=== PATIENT | male | born 1985 | race American Indian/Alaskan Native ===

== ENCOUNTER 2018-01-31 12:50 | Emergency (ER) | payer BC, OTHER ==
[2018-01-31 12:56] VITALS: BP 134/67
--- NOTE | 2018-01-31 14:03 | Emergency Department Report ---
ED Lower Extremity HPI - General Chief Complaint: Extremity Injury, Lower Stated Complaint: LEFT ANKLE PAIN Time Seen by Provider: 01/31/18 14:02 Source: patient Mode of arrival: Ambulatory Limitations: No Limitations - History of Present Illness Initial Comments: This is a 32-year-old male nontoxic, well nourished in appearance, no acute signs of distress presents to the ED with c/o of left ankle pain with slight swelling x1 day. Patient stated that he has been walking a lot at work and swelling increases and worsens at night time after work. Patient denies any trauma. Patient denies any numbness, tingling, chest pain, shortness of breath, ankle redness, back pain, nausea or vomiting. Patient denies any drug allergies. Patient denies PMH. MD Complaint: ankle injury -: days(s) (2) Injury: Knee: Left Place: work Severity: mild Severity scale (0 -10): 8 Improves With: immobilization Worsens With: movement, palpation Context: walking Associated Symptoms: ambulatory. denies: snap/pop sensation, swelling, numbness , tingling, unable to bear weight, able to partially bear weight - Related Data Previous Rx's Medication Instructions Recorded Last Taken Type Cyclobenzaprine HCl [Flexeril 5 MG 5 mg PO TID #20 tab 06/25/16 Unknown Rx TAB] Ibuprofen [Motrin 600 MG tab] 600 mg PO Q8H PRN #30 tablet 06/25/16 Unknown Rx Ondansetron [Zofran Odt] 4 mg PO Q6H #10 tab.rapdis 06/25/16 Unknown Rx Ibuprofen [Motrin] 600 mg PO Q8H PRN #30 tablet 01/31/18 Unknown Rx Allergies Allergy/AdvReac Type Severity Reaction Status Date / Time iodine Allergy Swelling Verified 06/25/16 12:00 shellfish derived Allergy Swelling Verified 06/25/16 12:00 ED Review of Systems ROS: Stated complaint: LEFT ANKLE PAIN Other details as noted in HPI Constitutional: denies: chills, fever Eyes: denies: eye pain, eye discharge, vision change ENT: denies: ear pain, throat pain Respiratory: denies: cough, shortness of breath, wheezing Cardiovascular: denies: chest pain, palpitations Endocrine: no symptoms reported Gastrointestinal: denies: abdominal pain, nausea, diarrhea Genitourinary: denies: urgency, dysuria Musculoskeletal: arthralgia. denies: back pain, joint swelling Skin: denies: rash, lesions Neurological: denies: headache, weakness, paresthesias Psychiatric: denies: anxiety, depression Hematological/Lymphatic: denies: easy bleeding, easy bruising ED Past Medical Hx - Past Medical History Previous Medical History?: No - Surgical History Past Surgical History?: No - Social History Smoking Status: Current Every Day Smoker Substance Use Type: None - Medications Home Medications: Home Medications Medication Instructions Recorded Confirmed Last Taken Type Cyclobenzaprine HCl [Flexeril 5 MG 5 mg PO TID #20 tab 06/25/16 Unknown Rx TAB] Ibuprofen [Motrin 600 MG tab] 600 mg PO Q8H PRN #30 tablet 06/25/16 Unknown Rx Ondansetron [Zofran Odt] 4 mg PO Q6H #10 tab.rapdis 06/25/16 Unknown Rx Ibuprofen [Motrin] 600 mg PO Q8H PRN #30 tablet 01/31/18 Unknown Rx ED Physical Exam - General Limitations: No Limitations General appearance: alert, in no apparent distress - Head Head exam: Present: atraumatic, normocephalic - Eye Eye exam: Present: normal appearance Pupils: Present: normal accommodation - ENT ENT exam: Present: normal exam, mucous membranes moist - Neck Neck exam: Present: normal inspection, full ROM - Respiratory Respiratory exam: Present: normal lung sounds bilaterally. Absent: respiratory distress, wheezes, rales, rhonchi, stridor, chest wall tenderness, accessory muscle use, decreased breath sounds, prolonged expiratory - Cardiovascular Cardiovascular Exam: Present: regular rate, normal rhythm, normal heart sounds. Absent: bradycardia, tachycardia, irregular rhythm, systolic murmur, diastolic murmur, rubs, gallop - GI/Abdominal GI/Abdominal exam: Present: soft, normal bowel sounds - Rectal Rectal exam: Present: deferred - Extremities Exam Extremities exam: Present: normal inspection, full ROM, tenderness, normal capillary refill. Absent: pedal edema, joint swelling, calf tenderness - Expanded Lower Extremity Exam Left Hip exam: Present: normal inspection, full ROM Upper Leg exam: Present: normal inspection, full ROM Knee exam: Present: normal inspection, full ROM Lower Leg exam: Present: normal inspection, full ROM. Absent: Daniel's sign Ankle exam: Present: normal inspection, full ROM, tenderness. Absent: swelling , abrasion, laceration, ecchymosis, crepidus, dislocation, erythema, anterior draw sign Foot/Toe exam: Present: normal inspection, full ROM. Absent: tenderness, swelling, abrasion, laceration, ecchymosis, deformity, crepidus, dislocation, erythema, amputation, puncture wound, foreign body, calcaneal tenderness, tenderness at base of 5th metatarsal, nail avulsion, subungual hematoma Neuro vascular tendon exam: Present: no vascular compromise. Absent: pulse deficit, abnormal cap refill, motor deficit, sensory deficit, tendon deficit, extremity cold to touch, pallor, abnormal 2-point discrimination, decreased fine /light touch, foot drop, peroneal nerve deficit, significant pain with passive ROM of distal joint Gait: Positive: observed and normal - Back Exam Back exam: Present: normal inspection, full ROM - Neurological Exam Neurological exam: Present: alert, oriented X3, normal gait - Psychiatric Psychiatric exam: Present: normal affect, normal mood - Skin Skin exam: Present: warm, dry, intact, normal color. Absent: rash ED Course Vital Signs 01/31/18 12:54 Temperature 97.9 F Pulse Rate 65 Respiratory 20 Rate Blood Pressure 134/67 O2 Sat by Pulse 100 Oximetry - Reevaluation(s) Reevaluation #1: 01/31/18 14:52 Patient is speaking in full sentences with no signs of distress noted. Reevaluation #2: Post splint assessment: neurovasular intact; normal cap refill <2 second; normal sensation; denies decreaed sensation; normal ROM of digits. ED Lower Extremity MDM - Medical Decision Making This is a 32-year-old male that presents with left ankle sprain. Patient is stable and was examined by me. Xray has been obtained by reviewed by Dr. Bustos with possible stress fracture. Patient received a posterior ankle short leg splint. Post splint assessment: neurovasular intact; normal cap refill <2 second; normal sensation; denies decreased sensation; normal ROM of digits. Patient was instructed to Rice therapy. Patient is discharged with Motrin. Patient also received crutches in the ED and was educated by RN to use crutches. Patient was referred to Follow-up with a orthopedic doctor in 3-5 days or if symptoms worsen and continue return to emergency room as soon as possible. At time of discharge, the patient does not seem toxic or ill in appearance. No acute signs of distress noted. Patient agrees to discharge treatment plan of care. No further questions noted by the patient. Critical care attestation.: If time is entered above; I have spent that time in minutes in the direct care of this critically ill patient, excluding procedure time. ED Disposition Clinical Impression: Ankle fracture Qualifiers: Encounter type: initial encounter Fracture type: closed Laterality: left Qualified Code(s): S82.892A - Other fracture of left lower leg, initial encounter for closed fracture Disposition: DC- TO HOME OR SELFCARE Is pt being admited?: No Does the pt Need Aspirin: No Condition: Stable Instructions: Ankle Fracture (ED), RICE Therapy (ED), Crutch Instructions (ED) , Ibuprofen (By mouth) Additional Instructions: Follow-up with a orthopedic doctor in 3-5 days or if symptoms worsen and continue return to emergency room as soon as possible. Prescriptions: Ibuprofen [Motrin] 600 mg PO Q8H PRN #30 tablet PRN Reason: Pain Referrals: PRIMARY CAREMD [Primary Care Provider] - 3-5 Days SUGEY RUIZ MD [Staff Physician] - 3-5 Days [facility] [Outside] - 3-5 Days [facility] [Outside] - 3-5 Days Forms: Work/School Release Form(ED)
[2018-01-31] MEDS ORDERED: MOTRIN PO ONE (14:12)
--- NOTE | 2018-01-31 16:12 | XRay Report ---
FINAL REPORT EXAM: XR ANKLE 3+V LT HISTORY: pain ankle with swelling TECHNIQUE: AP, lateral, and oblique views of the left ankle PRIORS: None. FINDINGS: There is no evidence for acute fracture or dislocation. Mild swelling is present laterally. No radiopaque foreign bodies are seen. The ankle mortise is intact. Bony mineralization is normal and joint spaces are maintained. Spurring off posterior aspect of the calcaneus is seen. Several small well corticated bony densities are noted distal to the fibula and off the anterior edge of the distal tibia. These are probably assess re-ossicles and have a remote appearance. IMPRESSION: No acute bony abnormality noted. Mild soft tissue swelling laterally.
== END 2018-01-31 16:33 | disposition home or self-care (01) ==
LOC: ED 12:50
DX: S82.892A Other fracture of left lower leg, initial encounter for closed fracture (principal); Z88.8 Allergy status to other drugs, medicaments and biological substances; Z91.013 Allergy to seafood; X58.XXXA Exposure to other specified factors, initial encounter; Y93.89 Activity, other specified; Y92.89 Other specified places as the place of occurrence of the external cause; Y99.8 Other external cause status; F17.200 Nicotine dependence, unspecified, uncomplicated
CPT/HCPCS: 99283

== ENCOUNTER 2019-04-27 12:51 | Emergency (ER) | payer OTHER ==
--- NOTE | 2019-04-27 13:54 | XRay Report ---
RIGHT HAND 3 VIEWS INDICATION / CLINICAL INFORMATION: hand pain. COMPARISON: None available. FINDINGS: No significant skeletal abnormality. Signer Name: Raul Short MD FACLadi Signed: 04/27/2019 1:49 PM Workstation Name: [id number]
[2019-04-27 15:08] VITALS: BP 129/58
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
== END 2019-04-27 15:33 | disposition home or self-care (01) ==
LOC: ED 12:51
DX: S60.221A Contusion of right hand, initial encounter (principal); S60.511A Abrasion of right hand, initial encounter; X58.XXXA Exposure to other specified factors, initial encounter; Y93.89 Activity, other specified; Y92.89 Other specified places as the place of occurrence of the external cause; Y99.8 Other external cause status

== ENCOUNTER 2019-09-26 19:04 | Emergency (ER) | payer SELFPAY ==
[2019-09-26 19:13] VITALS: BP 143/74
--- NOTE | 2019-09-26 19:16 | Emergency Department Report ---
Blank Doc - Documentation Documentation: 34-year-old male that presents with sore throat and right eye pain with redness. This initial assessment/diagnostic orders/clinical plan/treatment(s) is/are subject to change based on patient's health status, clinical progression and re- assessment by fellow clinical providers in the ED. Further treatment and workup at subsequent clinical providers discretion. Patient/guardians urged not to elope from the ED as their condition may be serious if not clinically assessed and managed. Initial orders include: 1- Patient sent to [facility] for further evaluation and treatment 2- visual test/johnson lamp/tonopen 3- strep swab
[2019-09-26] MEDS ORDERED: dexAMETHasone 20 MG/5 ML VIAL IM ONE (22:18)
[2019-09-26] MEDS ORDERED: KETOROLAC 30 MG/1 ML INJ IM ONE (22:18)
[2019-09-26] MEDS ORDERED: LIDOCAINE VISCOUS 2% 15 ML ORAL LIQD PO ONE (22:18)
--- NOTE | 2019-09-26 23:13 | Emergency Department Report ---
ED General Adult HPI - General Chief complaint: Sore Throat Stated complaint: SORE THROAT RT EYE REDNESS Time Seen by Provider: 09/26/19 19:14 Source: patient Mode of arrival: Ambulatory Limitations: No Limitations - History of Present Illness Initial comments: Patient is a 34-year-old Afro[place] male with no past medical history who presents to the ED with complaint of acute onset persistent severe sore throat with dysphagia, and erythematous painful eyes bilaterally for the last 12 hours. Patient unsure of any exposure to anyone with similar symptoms. Patient also complains of nasal and sinus congestion and mild dry cough. Patient denies fever, chills, dizziness, chest pain, shortness of breath, traumatic injury, vision loss, nausea, vomiting, diarrhea or abdominal pain and syncope. MD Complaint: Sore throat; bilateral eye pain with redness -: Sudden, hour(s) (12) Location: face, mouth Radiation: non-radiation Severity scale (0 -10): 8 Quality: aching, sharp Consistency: constant Improves with: none Worsens with: eating Associated Symptoms: denies other symptoms, cough, malaise. denies: confusion, diaphoresis, fever/chills, headaches, loss of appetite, nausea/vomiting, rash, seizure, shortness of breath, syncope, weakness Treatments Prior to Arrival: none - Related Data Previous Rx's Medication Instructions Recorded Last Taken Type Cyclobenzaprine HCl [Flexeril 5 MG 5 mg PO TID #20 tab 06/25/16 Unknown Rx TAB] Ibuprofen [Motrin 600 MG tab] 600 mg PO Q8H PRN #30 tablet 06/25/16 Unknown Rx Ondansetron [Zofran Odt] 4 mg PO Q6H #10 tab.rapdis 06/25/16 Unknown Rx Ibuprofen [Motrin] 600 mg PO Q8H PRN #30 tablet 01/31/18 Unknown Rx Amoxicillin/Potassium Clav 1 each PO Q12H #20 tablet 09/26/19 Unknown Rx [Augmentin 875-125 Tablet] Gentamicin 0.3% Ophth Soln 1 drops OP Q4H #5 ml 09/26/19 Unknown Rx Ibuprofen [Motrin] 800 mg PO Q8HR PRN #24 tablet 09/26/19 Unknown Rx Lidocaine Viscous 2% 10 ml PO Q6H PRN #120 ml 09/26/19 Unknown Rx Prednisone [predniSONE 10 mg 10 mg PO .TAPER #21 tab.ds.pk 09/26/19 Unknown Rx (6-Day Pack, 21 Tabs)] Allergies Allergy/AdvReac Type Severity Reaction Status Date / Time iodine Allergy Swelling Verified 04/27/19 12:55 shellfish derived Allergy Swelling Verified 04/27/19 12:55 ED Review of Systems ROS: Stated complaint: SORE THROAT RT EYE REDNESS Other details as noted in HPI Constitutional: denies: chills, fever Eyes: eye pain. denies: eye discharge ENT: throat pain, congestion. denies: ear pain Respiratory: denies: cough, shortness of breath, wheezing Cardiovascular: denies: chest pain, palpitations Endocrine: no symptoms reported Gastrointestinal: denies: abdominal pain, nausea, diarrhea Genitourinary: denies: urgency, dysuria Musculoskeletal: denies: back pain, joint swelling, arthralgia Skin: denies: rash, lesions Neurological: denies: headache, weakness, paresthesias Psychiatric: denies: anxiety, depression Hematological/Lymphatic: denies: easy bleeding, easy bruising ED Past Medical Hx - Past Medical History Previous Medical History?: No - Surgical History Past Surgical History?: No - Social History Smoking Status: Current Every Day Smoker Substance Use Type: None - Medications Home Medications: Home Medications Medication Instructions Recorded Confirmed Last Taken Type Cyclobenzaprine HCl [Flexeril 5 MG 5 mg PO TID #20 tab 06/25/16 Unknown Rx TAB] Ibuprofen [Motrin 600 MG tab] 600 mg PO Q8H PRN #30 tablet 06/25/16 Unknown Rx Ondansetron [Zofran Odt] 4 mg PO Q6H #10 tab.rapdis 06/25/16 Unknown Rx Ibuprofen [Motrin] 600 mg PO Q8H PRN #30 tablet 01/31/18 Unknown Rx Amoxicillin/Potassium Clav 1 each PO Q12H #20 tablet 09/26/19 Unknown Rx [Augmentin 875-125 Tablet] Gentamicin 0.3% Ophth Soln 1 drops OP Q4H #5 ml 09/26/19 Unknown Rx Ibuprofen [Motrin] 800 mg PO Q8HR PRN #24 tablet 09/26/19 Unknown Rx Lidocaine Viscous 2% 10 ml PO Q6H PRN #120 ml 09/26/19 Unknown Rx Prednisone [predniSONE 10 mg 10 mg PO .TAPER #21 tab.ds.pk 09/26/19 Unknown Rx (6-Day Pack, 21 Tabs)] ED Physical Exam - General Limitations: No Limitations General appearance: alert, in no apparent distress - Head Head exam: Present: atraumatic, normocephalic, normal inspection - Eye Eye exam: Present: normal appearance, PERRL, EOMI. Absent: scleral icterus, conjunctival injection, nystagmus Pupils: Present: normal accommodation - ENT ENT exam: Present: mucous membranes moist, TM's normal bilaterally, normal external ear exam, other (erythematous oropharynx and tonsils with white exudates) - Neck Neck exam: Present: normal inspection, full ROM, lymphadenopathy - Respiratory Respiratory exam: Present: normal lung sounds bilaterally. Absent: respiratory distress, wheezes, rales, stridor, chest wall tenderness, accessory muscle use, decreased breath sounds, prolonged expiratory - Cardiovascular Cardiovascular Exam: Present: regular rate, normal rhythm, normal heart sounds. Absent: systolic murmur, diastolic murmur, rubs, gallop - GI/Abdominal GI/Abdominal exam: Present: soft, normal bowel sounds. Absent: tenderness, guarding, hyperactive bowel sounds, hypoactive bowel sounds, organomegaly - Extremities Exam Extremities exam: Present: normal inspection, normal capillary refill - Back Exam Back exam: Present: normal inspection, full ROM. Absent: tenderness, CVA tender ness (R), CVA tenderness (L), muscle spasm - Neurological Exam Neurological exam: Present: alert, oriented X3, CN II-XII intact, normal gait, reflexes normal - Psychiatric Psychiatric exam: Present: normal affect, normal mood - Skin Skin exam: Present: warm, dry, intact, normal color. Absent: rash ED Course Vital Signs 09/26/19 09/26/19 19:11 22:27 Temperature 98.8 F Pulse Rate 78 Respiratory 18 18 Rate Blood Pressure 143/74 O2 Sat by Pulse 100 Oximetry ED Medical Decision Making - Medical Decision Making This is a 34-year-old male who presents to the ED with complaint of acute onset persistent sore throat and bilateral erythematous conjunctiva. In the ED, patient is alert and oriented 3 in destruction and distress. Rapid strep test is negative. Patient was treated for pain in the ED as well as also given steroid injection. Patient was discharged home on pain medications and treated with oral antibiotics for a suspected bacterial pharyngitis. Patient was advised to follow-up with his primary care physician in 5-7 days for reevaluation or return to the ED immediately if symptoms get worse. - Differential Diagnosis pharyngitis; conjunctivitis; URI; Allergic rhinitis; bronchitis Critical care attestation.: If time is entered above; I have spent that time in minutes in the direct care of this critically ill patient, excluding procedure time. ED Disposition Clinical Impression: Acute upper respiratory infection Acute pharyngitis Qualifiers: Pharyngitis/tonsillitis etiology: unspecified etiology Qualified Code(s): J02.9 - Acute pharyngitis, unspecified Acute conjunctivitis of both eyes Qualifiers: Acute conjunctivitis type: unspecified Qualified Code(s): H10.33 - Unspecified acute conjunctivitis, bilateral Disposition: TO HOME OR SELFCARE Is pt being admited?: No Does the pt Need Aspirin: No Condition: Stable Instructions: Conjunctivitis (ED), Pharyngitis (ED) Additional Instructions: Take medication with food, drink plenty of fluids and follow-up with your primary care physician in 5-7 days for reevaluation. Return to the ED immediately if symptoms get worse. Prescriptions: Amoxicillin/Potassium Clav [Augmentin 875-125 Tablet] 1 each PO Q12H #20 tablet Gentamicin 0.3% Ophth Soln 1 drops OP Q4H #5 ml Lidocaine Viscous 2% 10 ml PO Q6H PRN #120 ml PRN Reason: Pain , Severe (7-10) Ibuprofen [Motrin] 800 mg PO Q8HR PRN #24 tablet PRN Reason: Pain , Severe (7-10) Prednisone [predniSONE 10 mg (6-Day Pack, 21 Tabs)] 10 mg PO .TAPER #21 tab.ds.pk Referrals: PRIMARY CARE, [Primary Care Provider] - 3-5 Days Forms: Work/School Release Form(ED) Time of Disposition: 23:19 Print Language: DIVEHI
== END 2019-09-26 23:30 | disposition home or self-care (01) ==
LOC: ED 19:04
DX: J06.9 Acute upper respiratory infection, unspecified (principal); J02.9 Acute pharyngitis, unspecified; H10.33 Unspecified acute conjunctivitis, bilateral; F17.200 Nicotine dependence, unspecified, uncomplicated; Z79.1 Long term (current) use of non-steroidal anti-inflammatories (NSAID); Z79.2 Long term (current) use of antibiotics; Z79.899 Other long term (current) drug therapy; Z91.013 Allergy to seafood; Z88.8 Allergy status to other drugs, medicaments and biological substances
CPT/HCPCS: 87116; 87430; 96372; 99283; J1100; J1885

== ENCOUNTER 2020-12-15 12:09 | Emergency (ER) | payer BC ==
[2020-12-15 12:50] VITALS: BP 123/64
--- NOTE | 2020-12-15 13:06 | Emergency Department Report ---
ED ENT HPI - General Chief complaint: Sore Throat Stated complaint: SORE THROAT Time Seen by Provider: 12/15/20 12:40 Source: patient Mode of arrival: Ambulatory Limitations: No Limitations - History of Present Illness Initial comments: This is a 35-year-old male nontoxic, well nourished in appearance, no acute signs of distress presents to the ED with c/o of sore throat. Patient describes sore throat as swallowing razer blades. Patient denies any fever, chills, headache, stiff neck, nausea, vomiting, chest pain, shortness of breath, numbness or tingling. Patient denies any drooling or hoarseness. Patient denies any allergies or significant past medical history. MD complaint: sore throat -: days(s) Location: throat Severity: mild Severity scale (0 -10): 8 Quality: aching Consistency: constant Improves with: none Worsens with: swallowing Associated Symptoms: pain with swallowing, sore throat. denies: fever, cough, gum swelling, toothache, tinnitus, hearing loss, discharge from ear, rhinorrhea - Related Data Previous Rx's Medication Instructions Recorded Last Taken Type Cyclobenzaprine HCl [Flexeril 5 MG 5 mg PO TID #20 tab 06/25/16 Unknown Rx TAB] Ibuprofen [Motrin 600 MG tab] 600 mg PO Q8H PRN #30 tablet 06/25/16 Unknown Rx Ondansetron [Zofran Odt] 4 mg PO Q6H #10 tab.rapdis 06/25/16 Unknown Rx Ibuprofen [Motrin] 600 mg PO Q8H PRN #30 tablet 01/31/18 Unknown Rx Amoxicillin/Potassium Clav 1 each PO Q12H #20 tablet 09/26/19 Unknown Rx [Augmentin 875-125 Tablet] Gentamicin 0.3% Ophth Soln 1 drops OP Q4H #5 ml 09/26/19 Unknown Rx Ibuprofen [Motrin] 800 mg PO Q8HR PRN #24 tablet 09/26/19 Unknown Rx Lidocaine Viscous 2% 10 ml PO Q6H PRN #120 ml 09/26/19 Unknown Rx Prednisone [predniSONE 10 mg 10 mg PO .TAPER #21 tab.ds.pk 09/26/19 Unknown Rx (6-Day Pack, 21 Tabs)] Amoxicillin [Amoxicillin TAB] 875 mg PO BID #20 tablet 12/15/20 Unknown Rx Allergies Allergy/AdvReac Type Severity Reaction Status Date / Time iodine Allergy Swelling Verified 05/28/20 11:41 shellfish derived Allergy Swelling Verified 05/28/20 11:41 ED Dental HPI - General Chief complaint: Sore Throat Stated complaint: SORE THROAT Time Seen by Provider: 12/15/20 12:40 Source: patient Mode of arrival: Ambulatory Limitations: No Limitations - Related Data Previous Rx's Medication Instructions Recorded Last Taken Type Cyclobenzaprine HCl [Flexeril 5 MG 5 mg PO TID #20 tab 06/25/16 Unknown Rx TAB] Ibuprofen [Motrin 600 MG tab] 600 mg PO Q8H PRN #30 tablet 06/25/16 Unknown Rx Ondansetron [Zofran Odt] 4 mg PO Q6H #10 tab.rapdis 06/25/16 Unknown Rx Ibuprofen [Motrin] 600 mg PO Q8H PRN #30 tablet 01/31/18 Unknown Rx Amoxicillin/Potassium Clav 1 each PO Q12H #20 tablet 09/26/19 Unknown Rx [Augmentin 875-125 Tablet] Gentamicin 0.3% Ophth Soln 1 drops OP Q4H #5 ml 09/26/19 Unknown Rx Ibuprofen [Motrin] 800 mg PO Q8HR PRN #24 tablet 09/26/19 Unknown Rx Lidocaine Viscous 2% 10 ml PO Q6H PRN #120 ml 09/26/19 Unknown Rx Prednisone [predniSONE 10 mg 10 mg PO .TAPER #21 tab.ds.pk 09/26/19 Unknown Rx (6-Day Pack, 21 Tabs)] Amoxicillin [Amoxicillin TAB] 875 mg PO BID #20 tablet 12/15/20 Unknown Rx Allergies Allergy/AdvReac Type Severity Reaction Status Date / Time iodine Allergy Swelling Verified 05/28/20 11:41 shellfish derived Allergy Swelling Verified 05/28/20 11:41 ED Review of Systems ROS: Stated complaint: SORE THROAT Other details as noted in HPI Comment: All other systems reviewed and negative Constitutional: denies: chills, fever Eyes: denies: eye pain, eye discharge, vision change ENT: throat pain. denies: ear pain Respiratory: denies: cough, shortness of breath, wheezing Cardiovascular: denies: chest pain, palpitations Endocrine: no symptoms reported Gastrointestinal: denies: abdominal pain, nausea, diarrhea Genitourinary: denies: urgency, dysuria Musculoskeletal: denies: back pain, joint swelling, arthralgia Skin: denies: rash, lesions Neurological: denies: headache, weakness, paresthesias Psychiatric: denies: anxiety, depression Hematological/Lymphatic: denies: easy bleeding, easy bruising ED Past Medical Hx - Past Medical History Previous Medical History?: No - Surgical History Past Surgical History?: No - Social History Smoking Status: Never Smoker Substance Use Type: None - Medications Home Medications: Home Medications Medication Instructions Recorded Confirmed Last Taken Type Cyclobenzaprine HCl [Flexeril 5 MG 5 mg PO TID #20 tab 06/25/16 Unknown Rx TAB] Ibuprofen [Motrin 600 MG tab] 600 mg PO Q8H PRN #30 tablet 06/25/16 Unknown Rx Ondansetron [Zofran Odt] 4 mg PO Q6H #10 tab.rapdis 06/25/16 Unknown Rx Ibuprofen [Motrin] 600 mg PO Q8H PRN #30 tablet 01/31/18 Unknown Rx Amoxicillin/Potassium Clav 1 each PO Q12H #20 tablet 09/26/19 Unknown Rx [Augmentin 875-125 Tablet] Gentamicin 0.3% Ophth Soln 1 drops OP Q4H #5 ml 09/26/19 Unknown Rx Ibuprofen [Motrin] 800 mg PO Q8HR PRN #24 tablet 09/26/19 Unknown Rx Lidocaine Viscous 2% 10 ml PO Q6H PRN #120 ml 09/26/19 Unknown Rx Prednisone [predniSONE 10 mg 10 mg PO .TAPER #21 tab.ds.pk 09/26/19 Unknown Rx (6-Day Pack, 21 Tabs)] Amoxicillin [Amoxicillin TAB] 875 mg PO BID #20 tablet 12/15/20 Unknown Rx ED Physical Exam - General Limitations: No Limitations General appearance: alert, in no apparent distress - Head Head exam: Present: atraumatic, normocephalic - Eye Eye exam: Present: normal appearance - Expanded ENT Exam Expanded Ear exam: Present: normal external inspection Mouth exam: Present: normal external inspection, tongue normal. Absent: drooling, trismus, muffled voice Teeth exam: Present: normal inspection Throat exam: Positive: tonsillar erythema, tonsillomegaly (2+), other (Uvula midline). Negative: tonsillar exudate, R peritonsillar mass, L peritonsillar mass - Neck Neck exam: Present: normal inspection, full ROM. Absent: tenderness, meningismus, lymphadenopathy - Respiratory Respiratory exam: Absent: respiratory distress - Cardiovascular Cardiovascular Exam: Present: regular rate - Extremities Exam Extremities exam: Present: full ROM - Back Exam Back exam: Present: normal inspection, full ROM. Absent: tenderness, CVA tenderness (R), CVA tenderness (L), muscle spasm, paraspinal tenderness, vertebral tenderness, rash noted - Neurological Exam Neurological exam: Present: alert, oriented X3, normal gait - Psychiatric Psychiatric exam: Present: normal affect, normal mood - Skin Skin exam: Present: warm, dry, intact, normal color. Absent: rash ED Course Vital Signs 12/15/20 12:42 Temperature 98.2 F Pulse Rate 61 Respiratory 20 Rate Blood Pressure 123/64 O2 Sat by Pulse 100 Oximetry - Reevaluation(s) Reevaluation #1: 12/15/20 13:05 Patient is speaking in full sentences with no signs of distress noted. ED Medical Decision Making - Medical Decision Making Patient is stable and was examined by me. Vital signs are stable. Patient be treated with amoxicillin. Patient was instructed to follow-up with a primary care doctor in 3-5 days or if symptoms worsen and continue return to emergency room as soon as possible. At time of discharge, the patient does not seem toxic or ill in appearance. No acute signs of distress noted. Patient agrees to discharge treatment plan of care. No further questions noted by the patient. Critical care attestation.: If time is entered above; I have spent that time in minutes in the direct care of this critically ill patient, excluding procedure time. ED Disposition Clinical Impression: Tonsillitis Pharyngitis Qualifiers: Pharyngitis/tonsillitis etiology: unspecified etiology Qualified Code(s): J02.9 - Acute pharyngitis, unspecified Disposition: DC-01 TO HOME OR SELFCARE Is pt being admited?: No Does the pt Need Aspirin: No Condition: Stable Instructions: Pharyngitis, [id number] Additional Instructions: Follow-up with a primary care doctor in 3-5 days or if symptoms worsen and continue return to emergency room as soon as possible. Prescriptions: Amoxicillin [Amoxicillin TAB] 875 mg PO BID #20 tablet Referrals: PRIMARY CARE, [Referring] - 3-5 Days CARBUCCIA,TORI, MD [Staff Physician] - 3-5 Days Forms: Work/School Release Form(ED) Time of Disposition: 13:06
== END 2020-12-15 13:20 | disposition home or self-care (01) ==
LOC: ED 12:09
DX: J03.90 Acute tonsillitis, unspecified (principal); Z79.899 Other long term (current) drug therapy; Z91.013 Allergy to seafood; Z88.8 Allergy status to other drugs, medicaments and biological substances
CPT/HCPCS: 99281